=== PATIENT | male | born 1955 | race Caucasian/White ===

== ENCOUNTER 2023-04-22 13:35 | Outpatient (CLI) | payer MEDICARE, OTHER, SELFPAY ==
--- NOTE | ~2023-04-22 | CT_ITS ---
Clinical Indication: Abnormal weight loss CT Scan of the Chest, Abdomen, and Pelvis with Contrast: Technique: Contiguous sections were acquired throughout the chest, abdomen, and pelvis after intraven ous administration of 100 cc of Omnipaque 350. Dose reduction technique was used on this scan by uti lizing automated exposure control and iterative reconstruction technique. The dose-length product (DL P) was 1335.21 mGy-cm. Findings: There is no evidence of any significant mediastinal, hilar or axillary lymphadenopathy. The mediastin al soft tissues appear normal. There is no evidence of pleural or pericardial effusion. Apical pulmonary scarring noted several calcified pulmonary granulomas are present.. There is a probable 1.2 cm hypodense, noncystic lesion in the liver (axial image 103). Cholecystectom y clips are present. The spleen, pancreas, adrenals and kidneys are within normal limits. No evidenc e of aortic aneurysm. No lymphadenopathy. No bowel obstruction or bowel wall thickening. There is no evidence to suggest acute appendicitis. Multiple probable small stones layering in the urinary bladder. Prostate gland and seminal vesicles a re unremarkable. Impression: 1.2 cm indeterminate hypodense hepatic lesion. Follow-up pre and postcontrast MR should be considered to further evaluate this lesion. Multiple small layering urinary bladder stones. Reviewed, dictated and finalized at location M. Impression: 1.2 cm indeterminate hypodense hepatic lesion. Follow-up pre and postcontrast M R should be considered to further evaluate this lesion. Multiple small layering urinary bladder stones.
[2023-04-22 13:54] LABS: Estimated Glomerular Filt Rate 55
== END 2023-04-22 13:36 | disposition home or self-care (01) ==
LOC: ANHIMG 13:35
PROVIDERS: PCP Nurse Practitioner Family; Visit Provider Nurse Practitioner Family
DX: R63.4 Abnormal weight loss (principal); K76.9 Liver disease, unspecified; N21.0 Calculus in bladder
CPT/HCPCS: 71260; 74177; Q9967

== ENCOUNTER 2023-06-23 08:09 | Outpatient (CLI) | payer MEDICARE, OTHER, SELFPAY ==
--- NOTE | ~2023-06-23 | XR_ITS ---
EXAMINATION: XR UGIAC w barium swallow DATE: 06/23/2023 08:44 INDICATION: Dysphagia. Stomach pain. TECHNIQUE: The patient drank thick barium, gas-producing crystals, and thin barium. Fluoroscopy of th e esophagus, stomach, and proximal small bowel was performed. Fluoroscopy exposure time was 0.8 minut es. The total number of images was 252. Total dose-area product was 5.178 Gy-cm^2. COMPARISON: CT 04/22/2023 FINDINGS: There is no mass or stricture of the esophagus. There is normal primary and secondary esoph ageal peristalsis. Abnormal tertiary waves were noted. There is no hiatal hernia. There was no gastro esophageal reflux with provocative maneuvers. The stomach and proximal small bowel show normal foldin g patterns. IMPRESSION: 1. Mild esophageal dysmotility. Reviewed, dictated and finalized at location A.
== END 2023-06-23 08:10 | disposition home or self-care (01) ==
LOC: ANHIMG 08:13
PROVIDERS: PCP Nurse Practitioner Family; Visit Provider Nurse Practitioner Family
DX: K22.4 Dyskinesia of esophagus (principal)
CPT/HCPCS: 74246

== ENCOUNTER 2024-06-03 13:32 | Outpatient (CLI) | payer MEDICARE, OTHER, SELFPAY ==
[2024-06-03 14:03] LABS: Hematocrit 40.1 % (42.0-52.0); Hemoglobin 14.1 g/dL (14.0-18.0); Mean Corpuscular HGB Conc 35.2 g/dl (32-36); Mean Corpuscular Hemoglobin 31.6 pg (26-34); Mean Corpuscular Volume 89.9 fl (80-100); Mean Platelet Volume 9.8 fl (7.4-10.4); Platelet Count Result 161 k/mm3 (150-375); Red Blood Count 4.46 M/mm3 (4.6-6.20); Red Cell Distribution Width 12.5 % (11.5-14.5); White Blood Count 5.9 K/mm3 (4.5-10.0)
[2024-06-03 14:26] LABS: Alanine Aminotransferase 33 U/L (6-50); Albumin Level 4.4 g/dL (3.5-5.1); Alkaline Phosphatase 72 U/L (38-126); Anion Gap 10 mmol/L (4-12); Aspartate Amino Transferase 30 U/L (17-59); Bilirubin,Total 2.1 mg/dL (0.2-1.3); Blood Urea Nitrogen 20 mg/dL (9-20); Calcium 9.2 mg/dL (8.4-10.2); Carbon Dioxide 24 mmol/L (22-30); Chloride 104 mmol/L (98-107); Estimated Glomerular Filt Rate > 60; Glucose 94 mg/dL (65-110); Potassium 3.9 mmol/L (3.4-5.0); Sodium 138 mmol/L (137-145)
== END 2024-06-03 13:33 | disposition home or self-care (01) ==
PROVIDERS: PCP Nurse Practitioner Family; Visit Provider Nurse Practitioner Family
DX: R05.9 Cough, unspecified (principal); K76.9 Liver disease, unspecified
CPT/HCPCS: 36415; 80053; 85027

== ENCOUNTER 2024-08-14 09:28 | Outpatient (CLI) | payer MEDICARE, OTHER, SELFPAY ==
--- NOTE | ~2024-08-14 | US_ITS ---
EXAMINATION: US abdomen limited DATE: 08/14/2024 10:04 INDICATION: E80.6 - Other disorders of bilirubin metabolism TECHNIQUE: Multiple grayscale and Doppler ultrasound images of limited portions of the abdomen were o btained. COMPARISON: CT cap 04/22/2023. FINDINGS: The visualized portions of the pancreas are normal. Diffusely increased liver echogenicity. Enlarged liver. No surface nodularity. Normal hepatopetal flow in the main portal vein. Surgically a bsent gallbladder The common bile duct measures 5 mm. There was no sonographic Esqueda sign. IMPRESSION: Hepatomegaly. Echogenic liver, most commonly due to steatosis but also can be seen with hepatitis and fibrosis. Status post cholecystectomy. The previously described indeterminate right liver lobe lesion is not identified sonographically. Mable or recommendation for MRI of the liver without and with contrast is unchanged, unless performed at an outside institution. Reviewed, dictated and finalized at location K. ION CASHIER IMPRESSION: Hepatomegaly. Echogenic liver, most commonly due to steatosis but also can be s een with hepatitis and fibrosis. Status post cholecystectomy. The previously described indeterminate right liver lobe lesion is not identifie d sonographically. Prior recommendation for MRI of the liver without and with c ontrast is unchanged, unless performed at an outside institution.
== END 2024-08-14 09:29 | disposition home or self-care (01) ==
PROVIDERS: PCP Nurse Practitioner Family; Visit Provider Nurse Practitioner Family
DX: E80.6 Other disorders of bilirubin metabolism (principal); K76.9 Liver disease, unspecified
CPT/HCPCS: 76705

== ENCOUNTER 2024-09-22 09:41 | Outpatient (CLI) | payer MEDICARE, OTHER, SELFPAY ==
[2024-09-22 10:35] LABS: INR 1.1
[2024-09-22 10:38] LABS: Bilirubin Indirect 1.3 mg/dL (0-1.1); Bilirubin,Total 1.5 mg/dL (0.2-1.3)
[2024-09-22 10:48] LABS: Iron 87 ug/dL (49-181)
[2024-09-22 10:58] LABS: Percent Iron Saturation 33 % (20-50)
[2024-09-23 10:38] LABS: Alpha-1-Antitrypsin, QN 136 mg/dL (83-199); Ceruloplasmin 18 mg/dL (14-30)
[2024-09-25 21:28] LABS: Mitochondrial (M2) Ab (IgG) <20.0 U
[2024-09-25 22:13] LABS: LKM 1 Antibody <=20.0 U (<=20.0)
[2024-09-25 22:24] LABS: Actin Antibody (IgG) <20 U (<20)
== END 2024-09-22 09:42 | disposition home or self-care (01) ==
PROVIDERS: PCP Nurse Practitioner Family; Visit Provider Nurse Practitioner Family
DX: K76.0 Fatty (change of) liver, not elsewhere classified (principal); E80.6 Other disorders of bilirubin metabolism
CPT/HCPCS: 36415; 81596; 82103; 82247; 82248; 82390; 82728; 83520; 83540; 83550; 85610; 86038; 86039; 86364; 86376

== ENCOUNTER 2025-06-09 01:35 | Day surgery (SDC) | payer MEDICARE, OTHER, SELFPAY ==
[2025-06-07 12:17] VITALS: BMI 31.6
--- OUTSIDE RECORDS SUMMARY | 2025-06-09 01:38 | XMS_ITS | Encounter Summary ---
Author Organization [facility] Address [facility] [place] [address] Care Team Providers Care Entrepreneurship Program Director Name Role Phone Marco A Ramirez MD Primary Care Provider [phone] Torri Segundo NP Primary Care Provider [phone] Encounter Details Date Type Department Care Team (Late st Contact Info) Description 06/05/2015 Abstract [facility] CONVERSION [address] [place] [address] , Generic ConversionMD Social History Tobacco Use Types Packs/Day Years Used Date Smoking Tobacco: Never Assessed Sex and Gender Information Value Date Recorded Sex Assigned at Not on file Legal Sex Male 7:10 PM CDT Gender Identity Not on file Sexual Orientation Not on file documented as of this encounter Plan of Treatment Upcoming Encounters Date Type Department Care Team (Late st Contact Info) Description 08/23/2025 9:40 AM BLOOD BANK CUSTODIAN Office Visit [facility] Family & Internal Medicine [facility] [address] [place] [address] [place] [address] [facility] [address] [place] [address] [phone] documented as of this encounter Visit Diagnoses Not on filedocumented in this encounter Additional Health Concerns Infection Onset Date Last Indicated Resolved Time COVID-19 Rule Out 03/21/2020 03/21/2020 03/22/2020 8:24 PM CDT documented as of this encounter Care Teams Entrepreneurship Program Director Relationship Specialty Start Date End Date Marco A Ramirez MD PCP - General INTERNAL MEDICINE 11/25/18 11/18/21 [place] [address] [place] [address] PCP - General Nurse Practitioner Family 11/19/21 documented as of this encounter
--- OUTSIDE RECORDS SUMMARY | 2025-06-09 01:39 | XMS_ITS | Clinical Summary ---
Author Organization [facility] Address [address] [place] [address] Care Team Providers Care Senior Data Mining Analyst Name Role Phone Torri Segundo Danish BRONSON Primary Care Provider [phone] Allergies No known active allergies Medications buPROPion SR 150 MG 12 hr tablet Take 2 tablets (300 mg total) by mouth daily. 4 Active traZODone 100 MG tablet Take 1 tablet (100 mg total) by mouth nightly at bedtime. 0 Active ARIPiprazole 10 MG tablet Take 2 tablets (20 mg total) by mouth daily. 0 Active escitalopram (LEXAPRO) 20 MG tablet Take 1 tablet (20 mg total) by mouth daily. 4 Active amLODIPine (NORVASC) 10 MG tabletIndications:M ixed hyperlipidemia Take 1 tablet (10 mg total) by mouth daily. 90 tablet 3 4 Active pantoprazole EC (PROTONIX) 40 MG tabletIndications:G astroesophageal reflux disease, unspecified whether esophagitis present Take 1 tablet (40 mg total) by mouth daily. 90 tablet 3 4 Active cholestyramine (QUESTRAN) 4 GM/DOSE powder Take 0.5 packets (2 g total) by mouth 2 (two) times daily with meals. 5 Active famotidine (PEPCID) 20 MG tabletIndications:G astroesophageal reflux disease with esophagitis without hemorrhage TAKE 2 TABLETS DAILY EVERY EVENING 180 tablet 1 5 Active tamsulosin (FLOMAX) 0.4 MG CapIndications:Enla rged prostate without lower urinary tract symptoms (luts) Take 2 capsules (0.8 mg total) by mouth daily. 180 capsule 3 5 Active finasteride (PROSCAR) 5 MG tabletIndications:E nlarged prostate without lower urinary tract symptoms (luts) Take 1 tablet (5 mg total) by mouth daily. 90 tablet 3 5 Active pravastatin (PRAVACHOL) 20 MG tabletIndications:M ixed hyperlipidemia TAKE 1 TABLET NIGHTLY AT BEDTIME 90 tablet 3 5 Active pantoprazole EC (PROTONIX) 40 MG tabletIndications:E sophageal dysphagia,Chirinos's esophagus without dysplasia Take 1 tablet (40 mg total) by mouth 2 (two) times a day. 180 tablet 5 08/23/20 25 Active Active Problems Problem Noted Date Diagnosed Date Stage 2 chronic kidney disease 11/17/2024 Chronic diarrhea 03/24/2023 Bloating 11/05/2022 Overview (11/05/2022): Added automatically from request for surgery [id number] Epigastric pain 11/05/2022 Overview (11/05/2022): Added automatically from request for surgery [id number] History of colon polyps 11/05/2022 Overview (11/05/2022): Added automatically from request for surgery [id number] Dermatochalasis of both upper eyelids 09/03/2022 Overview (01/22/2023): Added automatically from request for surgery [id number] Mild depression 06/10/2022 At low risk for fall 06/10/2022 Obesity (BMI 30-39.9) 01/16/2022 Chirinos's esophagus without dysplasia 09/25/2021 Overview (09/26/2021): Yearly EGD per Dr. Etienne Essential hypertension 06/15/2019 Left carpal tunnel syndrome 05/29/2018 PTSD (post-traumatic stress disorder) 05/29/2018 Assessment & Plan (11/25/2018 6:43 PM CDT): See anxiety, above. Trigger middle finger of right hand 11/27/2016 Metacarpophalangeal joint pain of left hand 11/13 Erectile dysfunction, unspecified erectile dysfu nction type 09/30/2016 Assessment & Plan (11/25/2018 6:41 PM CDT): Patient continues on current dosing of sildenafil with reasonable effect. No treatment change. Medication management 12/04/2015 Overview (11/24/2018): Transitioned From: terminal carman use of drug Assessment & Plan (11/25/2018 6:46 PM CDT): Checking routine labs in 6 months (comprehensive metabolic panel, complete blood count without differential, and vitamin B12 and folic acid), [facility], for ongoing medication monitoring. Hyperbilirubinemia 06/12/2015 Anxiety 06/05/2015 Assessment & Plan (11/25/2018 6:43 PM CDT): Stable by patient report on current dosing of bupropion, quetiapine and sertraline as prescribed by his [facility]. Enlarged prostate without lo wer urinary tract symptoms (luts) 06/05/2015 Assessment & Plan (11/25/2018 6:42 PM CDT): Patient reports good control of symptoms with present dosing of tamsulosin and finasteride. No nocturia. Continue current treatment. GERD (gastroesophageal reflux disease) 5 Assessment & Plan (11/25/2018 6:39 PM CDT): History of antral gastritis, with prepyloric gastric erosion found on EGD from 2016. Patient continues on current dosing of pantoprazole and ranitidine with good effect, no breakthrough symptoms. Continue current treatment, check vitamin B12 and folic acid levels with next blood draw. Mixed hyperlipidemia 06/05/2015 Assessment & Plan (11/25/2018 6:42 PM CDT): Well-controlled on current dosing of pravastatin, with last panel [facility]. Mildly elevated triglycerides, no need for acute intervention. Continue current treatment and repeat lipids in 6 months. Class 1 obesity due to exces s calories with serious comorbidity and body mass index (BMI) of 30.0 to 30.9 in adult 06/05/2015 Obstructive sleep apnea on CPAP 06/05/2015 Assessment & Plan (11/25/2018 6:36 PM CDT): Julio reports consistent use of his CPAP unit, typically wearing it 8 hours every night. He feels like he is having some increased daytime sleepiness however and wonders about possible adjustment of his pressure. I have encouraged him to contact his [employer] equipment [employer] and review this with them. Resolved Problems Problem Noted Date Diagnosed Date Resolved Date Vitamin D deficiency 06/15/2019 020 Excessive daytime sleepiness 06/15/2019 09/13/2020 Encounters Date Type Department Care Team Description 05/25/2025 8:40 AM CDT Office Visit [facility] [address] [address] Torri Segundo NP Schaefer, Jennifer, NP New Patient 05/25/2025 Travel from Last 3 Months Immunizations Immunization Administration Dates Next Due Flucelvax 6 Months+ (Prefilled Syringe) 06/14/20 20 Fluzone 6 Months+ Quad (0.5 mL Prefilled Syringe ) 06/27/2021 Fluzone High Dose - >Age 65 (Prefilled Syringe) 08/05/2023,08/23/2022 Influenza (Generic) 06/15/2019 Influenza Adult (Generic) 06/15/2019,05/29/2018 MODERNA COVID-19 (12+) MRNA, LNP-S, PF, 100 MCG/ 0.5 ML DOSE 12/27/2020,11/29/2020 Pneumococcal (Prevnar 20) 06/10/2022 Shingrix 03/20/2018,01/12/2018 Tdap (Adacel) 09/13/2020 Tdap (Generic) 07/14/2018 Family History Medical History Relation Comments Lung Disease Brother Diabetes Mother Hypertension Mother Relation Status Comments Brother Father Mother Social History Tobacco Use Types Packs/Day Years Used Date Smoking Tobacco: Never Smokeless Tobacco: Never Tobacco Cessation:Counseling Given: Not Answered Alcohol Use Standard Drinks/Week Comments Not Currently 0 (1 standard drink = 0.6 oz pur e alcohol) PHQ-2 Answer Date Recorded Patient Health Questionnaire-2 Score 0 05/25/2025 Sex and Gender Information Value Date Recorded Sex Assigned at Not on file Legal Sex Male 7:10 PM CDT Gender Identity Not on file Sexual Orientation Not on file Last Filed Vital Signs Vital Sign Reading Time Taken Comments Blood Pressure 116/64 05/25/2025 8:38 AM CDT Pulse 64 05/25/2025 8:38 AM CDT Temperature 36.4 C (97.6 F) 05/25/2025 8:38 AM CDT Respiratory Rate 18 05/25/2025 8:38 AM CDT Oxygen Saturation 95% 05/25/2025 8:38 AM CDT Inhaled Oxygen Concentration - - Weight 105.7 kg (233 lb) 05/25/2025 8:38 AM CDT Height 182.9 cm (6') 05/25/2025 8:38 AM CDT Body Mass Index 31.6 05/25/2025 8:38 AM CDT Plan of Treatment Upcoming Encounters Date Type Department Care Team (Late st Contact Info) Description 08/23/2025 9:40 AM ECONOMICS TEACHER Office Visit [facility] Group Family & Internal Medicine - [place] [id number] [place] [address] Torri Segundo, SURFACE WATER TECHNICIAN [address] [facility] [address] [place] [id number] Health Maintenance Due Date Last Done Comments Annual Medicare Wellness Visit 2022 EGD-Chirinos's Surveillance 08/21/202408/21, 08/21/2021 COVID-19 Vaccine (3 - 2024-2 6 season) 2025 12/27/2020, 11/29/2020 Colorectal Cancer Screening Colonoscopy (10 Years) 11/21/2027 11/20/2022, 03/24/2020, 03/24/2020 DTaP, Tdap and Td Vaccines ( 3 - Td or Tdap) 09/13/2030 09/13/2020, 07/14/2018 RSV Immunization or 60+ Years (1 - 1-dose 75+ series) 2032 Zoster Vaccines Completed 03/20/2018, 01/12/2018 Pneumococcal Vaccine: 50+ Years Completed 06/10/2022 Hepatitis C Completed 01/22/2023 PHQ-2 (Physician [place]) Completed 05/25/2025 Meningococcal B Vaccine Aged Out No l onger eligible based on patient's age to complete this topic Meningococcal Vaccine Aged Out No adelaida nayely eligible based on patient's age to complete this topic RSV Immunizations Under 20 Months Aged Out No longer eligible b ased on patient's age to complete this topic Procedures Procedure Name Priority Date/Time Associated Diagnosis Comments HEPATITIS C ANTIBODY Routine 01/22/2023 9:53 AM CDT Encounter for hepatitis C screening test for low risk patient EGD GENERIC (SCAN ORDER) 08/21/2021 COLONOSCOPY GENERIC (SCAN ORDER) Routine 03/24/2020 from Last 3 Months or Most Recently Relevant to Health Maintenance Results * HEPATITIS C AB ([facility] ONLY) (01/22/2023 9:53 AM CDT) HEPATITIS C AB NON-REACTI VE NON-REACTI VE 01/22/2023 4:42 PM CDT [facility] 01/22/2023 9:53 AM CDT us Torri Segundo NP LABORATORY Final Result [facility] [address] [place] [address], [place] [phone] * EGD GENERIC (08/21/2021) 08/21/2021 Narrative 08/21/2021 Ordered by an unspecified provider. us Documents Scanned SCANNING Final Result * COLONOSCOPY (03/24/2020) us Documents Scanned SCANNING Final Result Performing Organization Address City/[facility]/ZIP Co de Phone Number [facility] from Last 3 Months or Most Recently Relevant to Health Maintenance Insurance MEDICARE [facility] Advance Directives Documents on File Type Date Recorded Patient Fence Maker Expl anation Advance Directives and Living Will 08/21/2021 12:00 AM ADVANCED DIRECTIVES Care Teams Senior Data Mining Analyst Relationship Specialty Start [place] [address] [address] PCP - General Nurse Practitioner Family 11/19/21
--- OUTSIDE RECORDS SUMMARY | 2025-06-09 01:39 | XMS_ITS | Encounter Summary ---
Author Organization [facility] Address [facility] [place] [address] Care Team Providers Care Mail Distributor Name Role Phone Marco A Ramirez MD Primary Care Provider [phone] Torri Segundo NP Primary Care Provider [phone] Encounter Details Date Type Department Care Team (Late st Contact Info) Description 03/21/2020 Prep for Procedure [facility] [address] [place] [address] Prasanna Etienne MD [address] [place] [address] Social History Tobacco Use Types Packs/Day Years Used Date Smoking Tobacco: Never Smokeless Tobacco: Never Alcohol Use Standard Drinks/Week Comments Not Currently 0 (1 standard drink = 0.6 oz pur e alcohol) Sex and Gender Information Value Date Recorded Sex Assigned at Not on file Legal Sex Male 7:10 PM CDT Gender Identity Not on file Sexual Orientation Not on file COVID-19 Exposure Response Date Recorded In the last month, have you been in contact with someone who was confirmed or suspected to have Coronavirus / COVID-19? No / Unsure 03/24/2020 7:28 AM CDT documented as of this encounter Plan of Treatment Upcoming Encounters Date Type Department Care Team (Late st Contact Info) Description 08/23/2025 9:40 AM QUARTZ CUTTER Office Visit [facility] Family & Internal Medicine [facility] [address] [place] [address] [place] [address] [address] documented as of this encounter Results * PRE-SURGICAL/PRE-PROCEDURE CORONAVIRUS (COVID 19) (03/21/2020 1:25 PM CDT) CORONAVIRUS SARS COV 2 PCR (RESP) NOT DETECTED NOT DETECTED 03/22/2020 8:24 PM CDT [facility] Comment: A Not Detected (negative) test result for this test means that SARS- CoV-2 RNA was not present in the specimen above the limit of detection. A negative result does not rule out the possibility of COVID-19 and should not be used as the sole basis for treatment or patient management decisions. If COVID-19 is still suspected, based on exposure history together with other clinical findings, re-testing should be considered in consultation with public health authorities. Laboratory test results should always be considered in the context of clinical observations and epidemiological data in making a final diagnosis and patient management decisions. Please review the Fact Sheets and FDA authorized labeling available for health care providers and patients using the following websites: https://www.[employer].com/home/Covid-19/HCP/NAAT/fact-sheet2 https://www.[employer]/home/Covid-19/Patients/NAAT/ fact-sheet2 This test has been authorized by the FDA under an Emergency Use Authorization (EUA) for use by authorized laboratories. Due to the current public health emergency, [facility] is receiving a high volume of samples from a wide variety of swabs and media for COVID-19 testing. In order to serve patients during this public health crisis, samples from appropriate clinical sources are being tested. Negative test results derived from specimens received in non-commercially manufactured viral collection and transport media, or in media and sample collection kits not yet authorized by FDA for COVID-19 testing should be cautiously evaluated and the patient potentially subjected to extra precautions such as additional clinical monitoring, including collection of an additional specimen. Methodology: Nucleic Acid Amplification Test (NAAT) includes PCR or TMA Additional information about COVID-19 can be found at the [facility] website: www.[employer]/Covid19. Test performed at [facility] [address] [address] Director: DUSTY CARMICHAEL DO,MPH NASOPHARYNGEAL SWAB / Unknown 03/21/2020 1:25 PM CDT us Prasanna Etienne MD MICROBIOLOGY - GENERAL ORDERABLE S Final Result [facility] [address] [place] [address], [place] documented in this encounter Visit Diagnoses Diagnosis Pre-op testing- Primary Preoperative examination, unspecified documented in this encounter Additional Health Concerns Infection Onset Date Last Indicated Resolved Time COVID-19 Rule Out 03/21/2020 03/21/2020 03/22/2020 8:24 PM CDT documented as of this encounter Care Teams Mail Distributor Relationship Specialty Start Date End Date Marco A Ramirez MD PCP - General INTERNAL MEDICINE 11/25/18 11/18/21 Torri Segundo, AUDIE [address] [facility] [address] [facility] [place] [address] PCP - General Nurse Practitioner Family 11/19/21 documented as of this encounter
--- OUTSIDE RECORDS SUMMARY | 2025-06-09 01:39 | XMS_ITS | Patient Health Record ---
Author Organization [facility] Address [address] [facility] [address] [place] [address] Support Name Relationship Address Phone Julio Irby Guarantor Unknown [phone] Reason For Referral No Information Plan Of Treatment No Information Insurance Providers Payer Name Payer Address Payer Phone Subscriber Number Group Number Insured Name Patient Relationship to Insured Coverage Start Date Coverage End Date [facility] [address] [place], [place] [id number] Julio Irby Self - patient is the insured
--- OUTSIDE RECORDS SUMMARY | 2025-06-09 01:39 | XMS_ITS | Clinical Summary ---
Author Organization [facility] Address [address] [place] [id number] Care Team Providers Care Timekeeper Supervisor Name Role Phone Dorinda Segundotess Hurt FAMILY RESOURCE COORDINATOR Primary Care Provide r Allergies No known active allergies Medications traZODone (DESYREL) 100 mg tabletIndication s:insomnia associated with depression Take 100 mg by mouth nightly 0 Active tolnaftate (TINACTIN) 1 % powder Apply as needed. 8 Active tamsulosin (FLOMAX) 0.4 mg extended release capsuleIndicatio ns:benign prostatic hyperplasia with lower urinary tract sx Take 0.8 mg by mouth nightly 2 Active sildenafiL (VIAGRA) 100 mg tablet Take 1 tablet by mouth as needed for erectile dysfunction 7 Active pravastatin (PRAVACHOL) 20 mg tabletIndication s:hyperlipidemia Take 20 mg by mouth nightly [address] (PROTONIX) 40 mg EC tabletIndication s:Treatment of Non-Bleeding Gastric Disorder Take 40 mg by mouth nightly 2 Active finasteride (PROSCAR) 5 mg tabletIndication s:benign prostatic hyperplasia with lower urinary tract sx Take 5 mg by mouth nightly 2 Active famotidine (PEPCID) 20 mg tabletIndication s:Heartburn,andrews roesophageal reflux disease Take 40 mg by mouth every morning 1 Active escitalopram (LEXAPRO) 10 mg tabletIndication s:Post Traumatic Stress Disorder Take 10 mg by mouth every morning 1 Active buPROPion XL (WELLBUTRIN XL) 300 mg 24 hr tabletIndication s:major depressive disorder Take 1 tablet by mouth every morning 4 Active ARIPiprazole (ABILIFY) 10 mg tabletIndication s:Depression Treatment Adjunct,PTSD Take 20 mg by mouth every morning 0 Active amLODIPine (NORVASC) 10 mg tabletIndication s:hypertension Take 1 tablet by mouth every morning 8 Active Bifidobacterium infantis (ALIGN) 4 mg capsuleIndicatio ns:stomach Take 4 mg by mouth every morning Active Suprep Bowel Prep Kit 17.5-3.13-1.6 gram recon soln 2 Active multivitamin capsuleIndicatio ns:supplement Take 1 capsule by mouth every morning Active erythromycin (ILOTYCIN) ophthalmic ointment Apply to eyelid incisions [address] Only [address] ointment in the eyes if they are irritated. 3.5 g 3 3 Active Additional Information Patient not taking.Reported on 12/09/2022 ARIPiprazole (ABILIFY) 20 mg tablet 3 Active Active Problems Problem Noted Date Diagnosed Date Dermatochalasis of both upper eyelids 09/03/2022 Overview (09/03/2022): Added automatically from request for surgery [id number] Surgical History Surgery Date Site/Laterality Comments STRABISMUS SURGERY 09/15/2000 - 09/14/2001 Bilateral ROTATOR CUFF REPAIR 09/15/2015 - 09/14/2016 Left CHOLECYSTECTOMY 09/15/2002 - 09/14/2003 ANKLE SURGERY 09/15/2007 - 10/15/2007 Right COLONOSCOPY 09/15/2018 - 09/14/2019 BLEPHAROPLASTY 09/30/2022 Bilateral BLEPHAROPLASTY UPPER EYELID (Bilateral: Eye) Medical History Medical History Date Comments Cataract Hypertension Prostate disorder PTSD (post-traumatic stress disorder) Sleep apnea CPAP user Chirinos's esophagus Chronic diarrhea Dysphagia Chirinos esophagus Family History Medical History Relation Name Comments Cancer Brother Diabetes Brother Skin cancer Brother Thyroid cancer Brother Thyroid disease Brother Bone cancer Mother Cancer Mother Colon cancer Mother Anesthesia problems Neg Hx Glaucoma Neg Hx Macular degeneration Neg Hx Strabismus Neg Hx Relation Name Status Comments Brother Mother Social History Tobacco Use Types Packs/Day Years Used Date Smoking Tobacco: Former Cigars Q uit: 1989 Passive Smoke Exposure: Never Smokeless Tobacco: Never Tobacco Cessation:Counseling Given: Not Answered AUDIT-C Answer Date Recorded Q1: How often do you have a drink containing alcohol? Never 09/12/2022 Q2: How many drinks containi ng alcohol do you have on a typical day when you are drinking? Patient does not drink Q3: How often do you have si x or more drinks on one occasion? Never 09/12/2022 Personal Safety Answer Date Recorded Have you ever been in or are you currently in a harmful physical or emotional relationship or is someone making you feel afraid or unsafe? Denies 07/31/2023 Sex and Gender Information Value Date Recorded Sex Assigned at Not on file Legal Sex Male 10:26 AM CDT Gender Identity Not on file Sexual Orientation Not on file Obstetrics History Last Filed Vital Signs Vital Sign Reading Time Taken Comments Blood Pressure 134/79 07/31/2023 9:59 AM LINUX SYSTEMS ADMINISTRATOR Pulse 73 07/31/2023 9:59 AM LINUX SYSTEMS ADMINISTRATOR Temperature 36.1 C (97 F) 09/30/2022 8:35 AM LINUX SYSTEMS ADMINISTRATOR Respiratory Rate 17 07/31/2023 9:59 AM LINUX SYSTEMS ADMINISTRATOR Oxygen Saturation 94% 09/30/2022 8:50 AM LINUX SYSTEMS ADMINISTRATOR Inhaled Oxygen Concentration - - Weight 106.6 kg (235 lb) 09/12/2022 9:30 AM LINUX SYSTEMS ADMINISTRATOR Height 182.9 cm (6') 09/12/2022 9:30 AM LINUX SYSTEMS ADMINISTRATOR Body Mass Index 31.87 09/12/2022 9:30 AM LINUX SYSTEMS ADMINISTRATOR Plan of Treatment Health Maintenance Due Date Last Done Comments Colon Cancer Screening-Colonoscopy 1955 Depression Screening 1955 Hepatitis C Screening 1955 Prostate Cancer Screening-PSA 1955 Hepatitis B Screening 1975 Abdominal Aortic Aneurysm (A AA) Screen 2022 Well Visit 65+ 2022 Fall Risk Assessment 09/30/2023 09/30/2022 Covid-19 Vaccine (3 - 2024-2 6 season) 2025 12/27/2020, 11/29/2020 Influenza Vaccine (#1) 2025 , 07/07/2021, 06/27/2021, Additional history exists DTaP/Tdap/Td Vaccine (3 - Td or Tdap) 09/13/2030 09/13/2020, 07/14/2018 Zoster Vaccine Completed 03/20/2018, 01/12/2018 Pneumococcal vaccine 65+ Completed 06/10/2022 Insurance MEDICARE [employer] FOR LIFE MEDICARE FOR LIFE Care Teams Timekeeper Supervisor Relationship Specialty [place] [address] [facility] [phone] PCP - General Nurse Practitioner 07/31/23
--- OUTSIDE RECORDS SUMMARY | 2025-06-09 01:39 | XMS_ITS | Encounter Summary ---
Author Organization [facility] Address [facility] [place] [address] Care Team Providers Care Stable Helper Name Role Phone Marco A Ramirez MD Primary Care Provider [phone] Torri Segundo NP Primary Care Provider [phone] Encounter Details Date Type Department Care Team (Late st Contact Info) Description 05/15/2017 Abstract [facility] CONVERSION [address] [place] [address] , Generic Conversion, Social History Tobacco Use Types Packs/Day Years [...] st Contact Info) Description 08/23/2025 9:40 AM OFFICER CAPTAIN Office Visit [facility] Family [facility] Internal Medicine [address] [id number] Torri Segundo NP [address] [place] [address] [place] [id number] documented as of this encounter Visit Diagnoses Not on filedocumented in this encounter Additional Health Concerns Infection Onset Date Last Indicated Resolved Time COVID-19 Rule Out 03/21/2020 03/21/2020 03/22/2020 8:24 PM CDT documented as of this encounter Care Teams Stable Helper Relationship Specialty Start Date End Date Marco A Ramirez MD PCP - General INTERNAL MEDICINE 11/25/18 11/18/21 [place] [address] [place] [address] PCP - General Nurse Practitioner Family 11/19/21 documented as of this encounter
[2025-06-09 11:02] VITALS: BP 111/66; PULSE 66; RESP 14; TEMP 36.5; O2SAT 96; BMI 31.2
[2025-06-09] MEDS: LACTATED RINGERS 1,000 ML 150 ML IV CONT (11:16)
[2025-06-09] MEDS: SIMETHICONE ORAL SUSPENSION 20 MG/0.3 ML 30 ML BOTTLE 1.8 ML PO (11:17)
--- NOTE | 2025-06-09 11:55 | WPDANESEPPF ---
Anes - Initial Pre Proc Eval Procedure: Operation Date: 06/09/25 12:30 Proposed Procedures p Esophagogastroduodenoscopy - Syed Duenas MD Date/Time: 06/09/25 11:55 Surgeon: Syed Duenas MD Pre Op Diagnosis: Gastro-esophageal reflux disease without esophagit Patient Data Age: 70 Gender: M Height: 1.83 m Weight: 104.6 kg Last Vital Signs Temp 97.7 F 06/09/25 11:02 Pulse 66 06/09/25 11:02 Resp 14 06/09/25 11:02 BP 111/66 06/09/25 11:02 Pulse Ox 96 06/09/25 11:02 O2 Del Method Room Air 06/09/25 11:02 Allergies Allergy/AdvReac Type Severity Reaction Status Date / Time No Known Allergies Allergy Verified 06/09/25 11:07 Home Medications ?Medication ?Instructions ?Recorded ?Confirmed ?Type amlodipine 10 mg tablet 10 mg PO DAILY 04/04/23 06/09/25 History aripiprazole 10 mg tablet 10 mg PO DAILY 04/04/23 06/09/25 History bupropion HCl 150 mg 24 hr tablet, 150 mg PO QAM 04/04/23 06/09/25 History extended release famotidine 20 mg tablet 20 mg PO BID 04/04/23 06/09/25 History finasteride 5 mg tablet 5 mg PO DAILY 04/04/23 06/09/25 History pantoprazole 40 mg tablet,delayed 40 mg PO BID 04/04/23 06/09/25 History release pravastatin 20 mg tablet 20 mg PO DAILY 04/04/23 06/09/25 History tamsulosin 0.4 mg capsule 0.8 mg PO DAILY 04/04/23 06/09/25 History trazodone 100 mg tablet 100 mg PO QHS PRN anxiety 04/04/23 06/07/25 History cholestyramine (with sugar) 4 gram See Rx Instructions .Route 01/13/25 06/09/25 Rx oral powder .COMPLEX #378 grams Patient hx anesthesia problems: none Family hx anesthesia problems: none Results Review: All pre-operative results and documents have been reviewed as part of the pre-operative evaluation. [facility] Past Medical History Medical History Epigastric pain Fatty liver Hyperbilirubinemia Colon polyps Liver lesion Barretts esophagus Coughing Dysphagia Weight loss Chronic diarrhea GERD (gastroesophageal reflux disease) Surgical History Surgical History History of throat surgery H/O colonoscopy Hx of cholecystectomy Family History Family History Mother Hypertension Diabetes mellitus Social History Social History Social History: Caffeine-coffee daily Years smoked: 4 Smoking status: Former smoker Tobacco type: cigars Second hand tobacco smoke exposure: No Alcohol intake: never Substance use: never Substance use type: does not use Lack of Transportation: No Lack of Food: Never True Current Housing: I Have Housing Concerned About Future Housing: No Difficulty Paying Gas/Electric Bills: No Difficulty Paying for Meds: No Currently Unemployed: No Education: Master's Degree or Higher Difficulty w/ Childcare or Family Care: No Living arrangements: with family Spiritual care concerns: No Anes - Eval Final PreProcedure Day of Procedure 06/09/25 11:55 Patient weight: obese Lungs: normal air movement Airway: Mallampati scale class II Neurological: alert and oriented Last oral intake: >/= 8 hours ASA classification: II Emergent: no Anesthetic plan: proceed Anesthesia type and monitoring: general GIVS and standard monitoring Results Review: All pre-operative results and documents have been reviewed as part of the pre-operative evaluation. HTN, hyperlipidemia, BMI 31, GERD, active, 1-2 fos, no cp or sob. Informed Consent: The patient's anesthetic plan and its attendant risks and benefits were discussed with the patient/family/POA. Questions were solicited and answers provided to the satisfaction of the patient/family/POA.
--- NOTE | 2025-06-09 12:02 | PM.IMHP ---
H&P: HPI History of Present Illness Date/Time: 06/09/25 12:02 Chief Complaint: Dysphagia Narrative: patient with longstanding heartburn, controlled with famotidine and omeprazole. However he is complaining of intermittent dysphagia mainly to solids that is not improving with the above-mentioned treatment. He is now referred for EGD. Review of Systems Review of Systems: All systems reviewed & are unremarkable except as noted in HPI and below PMFSH Past Medical History Medical History Epigastric pain Fatty liver Hyperbilirubinemia Colon polyps Liver lesion Barretts esophagus Coughing Dysphagia Weight loss Chronic diarrhea GERD (gastroesophageal reflux disease) Surgical History Surgical History History of throat surgery H/O colonoscopy Hx of cholecystectomy Family History Family History Mother Hypertension Diabetes mellitus Social History Social History Social History: Caffeine-coffee daily Years smoked: 4 Smoking status: Former smoker Tobacco type: cigars Second hand tobacco smoke exposure: No Alcohol intake: never Substance use: never Substance use type: does not use Lack of Transportation: No Lack of Food: Never True Current Housing: I Have Housing Concerned About Future Housing: No Difficulty Paying Gas/Electric Bills: No Difficulty Paying for Meds: No Currently Unemployed: No Education: Master's Degree or Higher Difficulty w/ Childcare or Family Care: No Living arrangements: with family Spiritual care concerns: No Meds Home Medications and Allergies Home Medications ?Medication ?Instructions ?Recorded ?Confirmed ?Type amlodipine 10 mg tablet 10 mg PO DAILY 04/04/23 06/09/25 History aripiprazole 10 mg tablet 10 mg PO DAILY 04/04/23 06/09/25 History bupropion HCl 150 mg 24 hr tablet, 150 mg PO QAM 04/04/23 06/09/25 History extended release famotidine 20 mg tablet 20 mg PO BID 04/04/23 06/09/25 History finasteride 5 mg tablet 5 mg PO DAILY 04/04/23 06/09/25 History pantoprazole 40 mg tablet,delayed 40 mg PO BID 04/04/23 06/09/25 History release pravastatin 20 mg tablet 20 mg PO DAILY 04/04/23 06/09/25 History tamsulosin 0.4 mg capsule 0.8 mg PO DAILY 04/04/23 06/09/25 History trazodone 100 mg tablet 100 mg PO QHS PRN anxiety 04/04/23 06/07/25 History cholestyramine (with sugar) 4 gram See Rx Instructions .Route 01/13/25 06/09/25 Rx oral powder .COMPLEX #378 grams Allergies Allergy/AdvReac Type Severity Reaction Status Date / Time No Known Allergies Allergy Verified 06/09/25 11:07 Vital Signs Vital Signs - 24 hr 06/09/25 11:02 Temperature 97.7 F Pulse Rate 66 Respiratory Rate 14 Blood Pressure 111/66 Pulse Oximetry 96 Oxygen Delivery Room Air Exam Const: General: cooperative and healthy appearing Resp: Effort & Inspection: normal respiratory effort and able to speak in complete sentences Auscultation: clear to auscultation bilaterally Cardio: Rate: regular rate Rhythm: regular rhythm GI: Inspection: normal to inspection GI Palp: No No hepatosplenomegaly present Auscultation: normal bowel sounds Rectal Exam: deferred Skin: General skin exam: normal color Psych: Appearance: grossly normal Mental Status: mental status grossly normal Assessment and Plan Assessment and plan (1) Dysphagia: Code(s): R13.10 - Dysphagia, unspecified Status: Acute Assessment and Plan: The patient is deemed a good candidate for the procedure. Consent signed. Will proceed. (2) GERD (gastroesophageal reflux disease): Code(s): K21.9 - Gastro-esophageal reflux disease without esophagitis Status: Acute
[2025-06-09] MEDS: BENZOCAINE (*SP) 60 ML SPRAY CAN (HURRICAINE) 1 SPRAY MUCOUS MEM (12:03)
--- NOTE | 2025-06-09 12:12 | S_PTH ---
PATIENT: Julio Abdi LOC: [facility] U#:[id number] AGE/SX: 70/M ROOM: RE06/09/[address]: Syed Duenas MD : 1955 BED: DIS: 06/09/2025 SPEC #: [id number] RECD: 06/09/25 13:27 STATUS: KEVIN RETiara #: [id number] CAMILA: 06/09/25 12:[address]: Syed Duenas DEPT: [facility] Surgical RECD BY: Sarah Cerda ENTERED: 06/09/25 13:28 SP TYPE: Surgical OTHR DR: Torri Segundo, LAPIDARY APPRENTICE Tissues: A - Esophageal Biopsy B - Gastric Biopsy C - Gastric Biopsy Procedures: Hematoxylin and Eosin Stain Gross and Microscopic Level 4
[2025-06-09 12:21] VITALS: BP 107/67; PULSE 61; RESP 20; O2SAT 93
[2025-06-09 12:31] VITALS: BP 122/74; PULSE 61; RESP 16; O2SAT 95
[2025-06-09 12:41] VITALS: BP 116/76; PULSE 63; RESP 16; O2SAT 95
== END 2025-06-09 12:57 | disposition home or self-care (01) ==
PROVIDERS: PCP Nurse Practitioner Family; Referring Provider Nurse Practitioner Family; Visit Provider Internal Medicine Gastroenterology
PROC: 0DJ08ZZ Inspection of Upper Intestinal Tract, Via Natural or Artificial Opening Endoscopic (ICD-10-PCS; CPT 43239; principal; 2025-06-09 12:30)
DX: K21.00 Gastro-esophageal reflux disease with esophagitis, without bleeding (principal); K29.30 Chronic superficial gastritis without bleeding; I10 Essential (primary) hypertension; E78.5 Hyperlipidemia, unspecified; E80.6 Other disorders of bilirubin metabolism; K52.9 Noninfective gastroenteritis and colitis, unspecified; E66.9 Obesity, unspecified; Z68.31 Body mass index [BMI] 31.0-31.9, adult; Z98.890 Other specified postprocedural states; Z90.49 Acquired absence of other specified parts of digestive tract; Z86.0100 Personal history of colon polyps, unspecified; Z87.891 Personal history of nicotine dependence
CPT/HCPCS: 43239; 88305; J2003; J2704; J7120

== ENCOUNTER 2025-07-26 08:51 | Outpatient (CLI) | payer MEDICARE, OTHER, SELFPAY ==
[2025-07-26 09:06] LABS: Hematocrit 41.3 % (42.0-52.0); Hemoglobin 14.8 g/dL (14.0-18.0); Mean Corpuscular HGB Conc 35.8 g/dl (32-36); Mean Corpuscular Hemoglobin 31.7 pg (26-34); Mean Corpuscular Volume 88.4 fl (80-100); Platelet Count Result 161 k/mm3 (150-375); Red Blood Count 4.67 M/mm3 (4.6-6.20); White Blood Count 6.1 K/mm3 (4.5-10.0)
[2025-07-26 09:18] LABS: Alanine Aminotransferase 34 U/L (6-50); Albumin Level 4.4 g/dL (3.5-5.1); Alkaline Phosphatase 66 U/L (38-126); Anion Gap 8 mmol/L (4-12); Aspartate Amino Transferase 29 U/L (17-59); Bilirubin,Total 1.9 mg/dL (0.2-1.3); Blood Urea Nitrogen 15 mg/dL (9-20); Calcium 8.9 mg/dL (8.4-10.2); Carbon Dioxide 25 mmol/L (22-30); Chloride 105 mmol/L (98-107); Estimated Glomerular Filt Rate > 60; Glucose 97 mg/dL (65-110); Potassium 4.1 mmol/L (3.4-5.0); Sodium 138 mmol/L (137-145); Total Protein 7.3 g/dL (6.3-8.2)
== END 2025-07-26 08:52 | disposition home or self-care (01) ==
PROVIDERS: PCP Nurse Practitioner Family; Visit Provider Nurse Practitioner Family
DX: E80.6 Other disorders of bilirubin metabolism (principal); K76.0 Fatty (change of) liver, not elsewhere classified
CPT/HCPCS: 36415; 80053; 85027